=== PATIENT | female | born 1945 | race Caucasian/White ===

== ENCOUNTER 2017-10-04 12:47 | Day surgery (SDC) | payer MEDICARE, SELFPAY ==
[2017-09-30 12:09] VITALS: BMI 24.9
[2017-10-04] VITALS (10 sets, daily range): BP systolic 106–137; BP diastolic 51–82; PULSE 66–95; RESP 14–21; TEMP 36.7; O2SAT 94–100
--- NOTE | 2017-10-04 13:47 | [facility].PROC ---
[facility] Procedure Note Procedure Note:: Upper Endoscopy Procedure Report: Esophagogastroduodenoscopy with cold biopsies Endoscopost: rFandy Callaway II, MD Referring Physician: Pako Johns MD Date of Procedure: October 04, 2017 Equipment: Olympus GIF 180 standard upper endoscope Sedation: Fentanyl 150 mg IV/ Versed 6 mg IV Indications: Mrs. Levy is a 72-year-old female who is here for persistent nausea. She reports bloating and lower abdominal crampy discomfort. She does have some dyspepsia. She has had a long history of IBS with constipation. She also has chronic dyspepsia. She reports some early satiety but reports no bloating or gassiness. She reports no rectal bleeding. She was unable to tolerate her bowel preparation so is not doing the colonoscopy today. She did have a colonoscopy in 2005 at which time a single polyp (tubular adenoma ?1) was removed. Her last colonoscopy in September 2012 revealed a single polyp (tubular adenoma ?1) which was removed. Procedure: Prior to the procedure, a history and physical exam was performed, and patient's medications and allergies were reviewed. The risks, benefits and alternatives of the sedation and procedure were discussed with the patient. All questions were answered and informed consent was obtained. The patient was brought to the procedure room. Patient identification and proposed procedure were verified by the physician and the nurse. The patient was placed in a left lateral decubitus position and the scope was passed under direct vision. Throughout the procedure, the patient's blood pressure, pulse, and oxygen saturations were monitored continuously. The upper GI endoscopy was accomplished without difficulty. The patient tolerated the procedure well. Findings: The scope was passed directly into the upper esophagus and advanced to the third portion of the duodenum. The post bulbar duodenum and duodenal bulb were normal with normal mucosa and conniventes. The scope was withdrawn through a normal duodenal bulb and pylorus into the stomach. There was moderate bile reflux with linear erythema of the antrum with mild linear reactive antritis/ gastritis. There were multiple gastric fundic polyps identified. The remainder of the antrum, body and fundus of the stomach were grossly normal. Upon retroflexion there was no hiatal hernia. The largest fundic gland polyp was removed via cold biopsy. The scope was then withdrawn into the esophagus. There was a serrated Z line and 1 short tongue of salmon colored mucosa was biopsied to rule out intestinal metaplasia. There was no evidence of reflux esophagitis. There were tertiary contractions and evidence of moderate esophageal dysmotility. The remainder of the esophageal mucosa was normal. Impression: 1. Nonerosive GERD with mild esophageal dysmotility 2. Bile reflux with linear reactive antritis/gas 3. 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 I would recommend promotility therapy and fiber bowel regimen. I will follow up the biopsies. I would recommend screening colonoscopy at the patient's convenience. We will repeat bowel preparation with lower fluid volume or the pill preparation.
--- NOTE | 2017-10-04 13:52 | P.PCN_ITS ---
[facility] Procedure Note Procedure Note:: Upper Endoscopy Procedure Report: Esophagogastroduodenoscopy with cold biopsies Endoscopost: Frandy Callaway II, MD Referring Physician: Pako Johns MD Date of Procedure: October 04, 2017 Equipment: Olympus GIF 180 standard upper endoscope Sedation: Fentanyl 150 mg IV/ Versed 6 mg IV Indications: Mrs. Levy is a 72-year-old female who is here for persistent nausea. She reports bloating and lower abdominal crampy discomfort. She does have some dyspepsia. She has had a long history of IBS with constipation. She also has chronic dyspepsia. She reports some early satiety but reports no bloating or gassiness. She reports no rectal bleeding. She was unable to tolerate her bowel preparation so is not doing the colonoscopy today. She did have a colonoscopy in 2005 at which time a single polyp (tubular adenoma ?1) was removed. Her last colonoscopy in September 2012 revealed a single polyp ( tubular adenoma ?1) which was removed. Procedure: Prior to the procedure, a history and physical exam was performed, and patient' s medications and allergies were reviewed. The risks, benefits and alternatives of the sedation and procedure were discussed with the patient. All questions were answered and informed consent was obtained. The patient was brought to the procedure room. Patient identification and proposed procedure were verified by the physician and the nurse. The patient was placed in a left lateral decubitus position and the scope was passed under direct vision. Throughout the procedure, the patient's blood pressure, pulse, and oxygen saturations were monitored continuously. The upper GI endoscopy was accomplished without difficulty. The patient tolerated the procedure well. Findings: The scope was passed directly into the upper esophagus and advanced to the third portion of the duodenum. The post bulbar duodenum and duodenal bulb were normal with normal mucosa and conniventes. The scope was withdrawn through a normal duodenal bulb and pylorus into the stomach. There was moderate bile reflux with linear erythema of the antrum with mild linear reactive antritis/ gastritis. There were multiple gastric fundic polyps identified. The remainder of the antrum, body and fundus of the stomach were grossly normal. Upon retroflexion there was no hiatal hernia. The largest fundic gland polyp was removed via cold biopsy. The scope was then withdrawn into the esophagus. There was a serrated Z line and 1 short tongue of salmon colored mucosa was biopsied to rule out intestinal metaplasia. There was no evidence of reflux esophagitis. There were tertiary contractions and evidence of moderate esophageal dysmotility. The remainder of the esophageal mucosa was normal. Impression: 1. Nonerosive GERD with mild esophageal dysmotility 2. Bile reflux with linear reactive antritis/gas 3. 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 I would recommend promotility therapy and fiber bowel regimen. I will follow up the biopsies. I would recommend screening colonoscopy at the patient's convenience. We will repeat bowel preparation with lower fluid volume or the pill preparation.
== END 2017-10-04 14:50 | disposition home or self-care (01) ==
LOC: OUTP 12:55
PROVIDERS: PCP Family Medicine; Visit Provider Internal Medicine Gastroenterology
PROC: 0DJ08ZZ Inspection of Upper Intestinal Tract, Via Natural or Artificial Opening Endoscopic (ICD-10-PCS; CPT 43235; principal; 2017-10-04 13:30)
DX: K21.9 Gastro-esophageal reflux disease without esophagitis (principal); K22.4 Dyskinesia of esophagus; K31.7 Polyp of stomach and duodenum; K29.60 Other gastritis without bleeding; K30 Functional dyspepsia
CPT/HCPCS: 43239; 88305; 99152